=== PATIENT | female | born 1980 | race Caucasian/White ===

== ENCOUNTER 2017-05-29 15:58 | Emergency (ER) | payer OTHER ==
[~2017-05-29] VITALS: Ht 165.1 cm; Wt 88.6 kg
[~2017-05-29 15:58] MED LIST: IBUP600 PO; OXYC1SOL5 PO; PERI8.6T PO; PREN0.01 PO
[2017-05-29 16:06] VITALS: BP 128/81; PULSE 86; RESP 18; TEMP 98.4; O2SAT 97
[2017-05-29] MEDS ORDERED: IBUP-232 PO (16:11)
[2017-05-29] MEDS ORDERED: KETOROLAC TROMETHAMINE 60 MG/2 ML (IM) VIAL IM ONE (16:30)
[2017-05-29] MEDS ORDERED: DEXAMETHASONE SOD PHOS 4 MG/ML VIAL IM ONE (16:30)
[2017-05-29] MEDS ORDERED: IBUP1TAB7 PO (16:53)
[2017-05-29] MEDS ORDERED: ROBA750T PO (16:53)
--- NOTE | 2017-05-29 16:56 | PD ---
HPI Chief Complaint: Musculoskeletal Complaint Time Seen by Provider: 16:00 Travel History International Travel<30 days: No Contact w/Intl Traveler<30days: No Traveled to known affect area: No History of Present Illness HPI 36 -year-old female with left low back pain radiating down into the leg. Pain started this morning. No injury trauma. History of sciatica on the right. Denies fever, chills, incontinence, saddle anesthesia, paresthesia or weakness of the extremity. Symptom severity is moderate. No aggravating or alleviating factors. PFSH Past Medical History Medical History: Denies Significant Hx Diminished Hearing: No Musculoskeletal: Yes (EPIDURAL INJECTION RECENT) Immunizations Current: Yes Tetanus Vaccination: > 5 Years Influenza Vaccination: Yes ?: Not : 2 Para: 1 Past Surgical History Section: Yes Social History Alcohol Use: No Tobacco Use: Yes (/2) Substance Use: No Allergies-Medications (Allergen,Severity, Reaction): Coded Allergies: No Known Allergies (Verified Adverse Reaction, Unknown, 05/29/17) Reported Meds & Prescriptions Reported Meds & Active Scripts Active Reported Ibuprofen 600 Mg Tab 600 Mg PO Q8H PRN Review of Systems Except as stated in HPI: all other systems reviewed are Neg General / Constitutional: No: Fever Physical Exam Narrative GENERAL: Alert well-appearing female. SKIN: Warm and dry. HEAD: Normocephalic. EYES: No injection or drainage. NECK: Supple, trachea midline. CARDIOVASCULAR: Regular rate and rhythm without murmurs, gallops, or rubs. RESPIRATORY: Breath sounds equal bilaterally. No accessory muscle use. GASTROINTESTINAL: Abdomen soft, non-tender, nondistended. MUSCULOSKELETAL: No cyanosis, or edema. BACK: Nontender cervical, thoracic, lumbar spine. Without obvious deformity. No CVA tenderness. Tenderness over the left sacroiliac joint. 5 out of 5 strength in the lower extremities. 2+ dorsal pedis pulse. Normal sensation. 2 + DTRs Data Data Last Documented VS Vital Signs Date Time Temp Pulse Resp B/P (MAP) Pulse Ox O2 Delivery O2 Flow Rate FiO2 05/29/17 16:14 (97) 05/29/17 16:06 98.4 86 18 97 Orders Orders Ketorolac Inj (Toradol Inj) (05/29/17 16:30) Dexamethasone Inj (Decadron Inj) (05/29/17 16:30) [facility] Medical Decision Making Medical Screen Exam Complete: Yes Emergency Medical Condition: Yes Differential Diagnosis Sciatica, herniated disc, lumbar strain Narrative Course 36 -year-old female with left pain radiates down into the leg. Pain present since this morning. Patient has history of sciatica. Denies fever, chills, incontinence, saddle anesthesia. On exam she has tenderness in the left lumbar paraspinous musculature into the buttocks and down the leg. She has normal strength and sensation in the lower extremities. No midline spine pain. She will be treated for Sciatica Diagnosis Primary Impression: Sciatica Qualified Codes: M54.32 - Sciatica, left side Referrals: Primary Care Physician Additional Instructions: Avoid heavy lifting or strenuous activity. Follow-up with her primary doctor. Scripts Methocarbamol (Robaxin) 750 Mg Tab 750 MG PO TID for Muscle Spasm, #12 TAB 0 Refills Prov: Mi Menchaca 05/29/17 Ibuprofen (Ibuprofen) 800 Mg Tab 800 MG PO Q6HR Y for PAIN, #40 TAB 0 Refills Prov: Mi Menchaca 05/29/17 Disposition: 01 DISCHARGE HOME Condition: Stable Mi Menchaca May 29, 2017 16:56
== END 2017-05-29 17:11 | disposition home or self-care (01) ==
LOC: PHEFT 15:58
DX: M54.32 Sciatica, left side (principal); F17.200 Nicotine dependence, unspecified, uncomplicated
CPT/HCPCS: 96372; 99284; J1100; J1885

== ENCOUNTER → 2017-09-05 | Day surgery (SDC) | payer OTHER ==
[~2017-09-05] VITALS: Ht 165.1 cm; Wt 94.6 kg
[~2017-09-05] MED LIST changes: +ACETAMINOPHEN 1000 MG/100 ML 100 ML IV ONE; +BUPIVACAINE LIPOSOME PF 1.3% 20 ML VIAL INFIL ONE; +BUPIVACAINE LIPOSOME PF 1.3% 20 ML VIAL ONE; +CHLORHEXIDINE GLUCONATE 2 % 1 PACK (2 CLOTHS) TOPICAL PRN; +DEXAMETHASONE SOD PHOS 4 MG/ML VIAL IV ONE; +DO NOT ADM ANY ANTICOAGULANT DRUGS PRN; +GELFOAM SIZE 100 ONE; +GENTAMICIN SULFATE 80 MG/2 ML VIAL ONE; +GLYCOPYRROLATE 1 MG/5 ML SYRINGE IV PUSH ONE; -IBUP600 PO; +KETOROLAC TROMETHAMINE 30 MG/ML (IVP) VIAL IV PUSH ONE; +LACTATED RINGER'S 1000 ML INJ 1,000 ML IV ONE; +LACTATED RINGER'S 1000 ML INJ 1,000 ML IV SCH; +LACTATED RINGER'S 1000 ML IV PRN; +LIDOCAINE 1%/EPINEPHrine 1:100,000 SOLN 30 ML VIAL ONE; +METOPROLOL TARTRATE 25 MG TAB PO PRN; +MIDAZOLAM HCL 2 MG/2 ML VIAL ONE; +MORPHINE SULFATE 4 MG/ML INJ ONE; +NEOSTIGMINE 5 MG/5 ML SYRINGE IV PUSH ONE; +NORT1TAB PO; +ONDANSETRON HCL 4 MG/2 ML VIAL IV ONE; -OXYC1SOL5 PO; +PERC5TAB12 PO; -PERI8.6T PO; +PHENYLEPH/NS 1000 MCG/10 ML SYR IV ONE; +POVIDONE IODINE 5% (ANTISEPSIS KIT) 4 APPLICATIONS EACH NARE PRN; -PREN0.01 PO; +ROCURONIUM INJ 50 MG/5 ML SYRINGE IV PUSH ONE; +SODIUM CHLORID 0.9% 500 ML IV PRN; +THROMBIN (TOPICAL) 5,000 UNIT VIAL ONE; +TRAM50TA PO; +ceFAZolin 1,000 MG/NS 100 ML IV SCH; +ceFAZolin INJ 1,000 MG VIAL ONE
--- NOTE | 2017-09-05 08:17 | EKG ---
Date Performed: 09/05/2017 Time Performed: 06:48:46 PTAGE: 37 years EKG: Sinus rhythm LOW QRS VOLTAGE IN PRECORDIAL LEADS BORDERLINE ECG NO PREVIOUS TRACING DOCTOR: Marzena Hough Interpretating Date/Time 09/05/2017 08:16:31
--- NOTE | 2017-09-05 13:11 | PD.OP ---
Operative Report Date of Surgery: Sep 05, 2017 Preoperative Diagnosis: (1) Herniated nucleus pulposus, lumbar (2) Lumbar radiculopathy 1. Left L5-S1 herniated nucleus pulposus 2. Left S1 radiculopathy Postoperative Diagnosis: (1) Herniated nucleus pulposus, lumbar (2) Lumbar radiculopathy 1. Left L5-S1 herniated nucleus pulposus 2. Left S1 radiculopathy Procedure: 1. Left L5-S1 [id number], resection herniated nucleus pulposus Anesthesia: General Surgeon: Butch Lehman [employer] Professional(s): Krysta Knight Operation and Findings: Findings: Large left L5-S1 subannular herniated nucleus pulposus with significant displacement of the exiting left S1 nerve root. Procedure in detail: The patient was brought into the operating room and general endotracheal anesthesia induced without difficulty. Knee-high sequential compression devices were placed. Lines were established by Anesthesia The patient was placed in prone position on the concentric Jorge table with the side bolsters and all extremities appropriately padded Appropriate timeout procedure was performed with all personal present and in agreement The lumbar region was shaved with clippers and sterilely prepped and draped. 1% Xylocaine with epinephrine was used for local infiltration over the incision site which was made just to the left of midline at the L5-S1 level. The incision was carried sharply down to the lumbodorsal fascia which was incised just adjacent to the spinous processes. Rajan elevator was used for subperiosteal elevation of paraspinous musculature and fascia away from the lamina and spinous process The deep self-retaining retractor was placed. The appropriate level was verified with intraoperative C-arm. The microscope was moved into place and used for the remainder of the procedure including the closure. The TPS drill with the 5 mm bone bur followed by the 3 mm Kerrison rongeur was used to remove the inferior aspect of the most cephalad lamina and a small amount of the superior aspect of the most caudal lamina along with a small amount of the medial facet sufficient to gain access to the lateral recess without significant nerve root or thecal sac retraction. The ligamentum flavum was elevated away from the thecal sac and resected with the Kerrison rongeur which was also used to further remove ligamentum along the lateral recess. The exiting nerve root was traced down to the medial aspect of the inferior pedicle and traced back to the exit from the thecal sac. The thecal sac and exiting nerve root were then retracted gently medially revealing the underlying disc and annulus. The patient was noted to have a prominent subannular herniated nucleus pulposus which was significantly impinging on the overlying exiting nerve root and thecal sac. The disc and annulus were incised with the 11 blade knife and discectomy performed with the pituitary biopsy forceps and the straight and angled curettes. Any loose pieces of disc material in the intervertebral disc space were carefully removed. The neural structures appeared well decompressed at the end of the procedure. Bleeding was carefully controlled with bone wax for the bone bleeding and bipolar forceps. There is no significant bleeding time of closure. No cerebrospinal fluid leakage was encountered. 10 cc of Exparel was injected into the paraspinous musculature prior to final closure. The closure was performed with 0 Vicryl interrupted for the deep and superficial fascia, with 3-0 Vicryl interrupted for the subcutaneous closure, and 4-0 Vicryl running for the subcuticular closure. The dressing of sterile Mastisol, Steri-Strips, and Primapore dressing was applied. The patient was taken to recovery room in stable condition. All counts were correct at the end of the case. No specimen was sent to pathology. Estimated blood loss was 50 cc . Butch Lehman MD Sep 05, 2017 13:11
--- NOTE | 2017-09-05 13:20 | RADRPT ---
EXAM DATE/TIME: 09/05/2017 10:56 [facility] COMPARISON: No previous studies available for comparison. INDICATIONS : L5-S1 lumbar laminectomy. Level localization. MEDICAL HISTORY : None. SURGICAL HISTORY : None. ENCOUNTER: Initial ACUITY: 1 day PAIN SCORE: Non-responsive. LOCATION: Lumbar spine. FINDINGS: Single lateral view of the lower lumbar region acquired digitally in the operating room using C-arm. Retractors and a localization probe is present. CONCLUSION: Intraoperative image. Raul Geiger MD on September 05, 2017 at 13:17 Board Certified Radiologist. This report was verified electronically.
[2017-09-05 14:30] VITALS: BP 104/67; PULSE 72; RESP 18; TEMP 97.8; O2SAT 97
== END | disposition home or self-care (01) ==
LOC: HSDC 06:08
PROVIDERS: ATTEND Neurological Surgery
DX: M51.17 Intervertebral disc disorders with radiculopathy, lumbosacral region (principal); R94.31 Abnormal electrocardiogram [ECG] [EKG]
CPT/HCPCS: 00630; 63030; 72020; 76000; 93005; C9290; J0131; J0690; J1100; J1580; J1885; J2250; J2270; J2370; J2405; J2710; J3010; J7120